=== PATIENT | female | born 2000 | race Caucasian/White ===

== ENCOUNTER 2024-03-23 19:18 | Emergency (ER) | payer MEDICAID, SELFPAY ==
[2024-03-23 19:19] VITALS: BMI 26.6
[2024-03-23 19:38] VITALS: BP 126/77; PULSE 88; RESP 18; TEMP 37.1; O2SAT 99
--- NOTE | 2024-03-23 19:50 | XR_ITS ---
Examination: Complete OB ultrasound greater than 14 weeks Date and time of exam: March 23, 2024 2028 hrs. Indications: Vaginal bleeding and discharge pelvic cramping beginning 2 hours ago Findings: Viable intrauterine single fetus with single amniotic sac presentation transverse head maternal left Cardiac motion 150 BPM Placenta posterior grade 1 Umbilical cord insertion 3 vessel seen Amniotic fluid index 5.4 cm Cervix 4.9 cm Right ovary 3.3 x 2.7 cm arterial flow Left ovary 2.2 x 2.7 cm arterial flow. Composite estimated gestational age based on BPD, head circumference, abdominal circumference, femur length is weeks 0 days Estimated weight 106 g. Survey of intracranial anatomy, spinal anatomy, abdominal anatomy, four-chamber heart performed with no abnormalities identified. Impression: Viable intrauterine gestation transverse presentation Placenta posterior grade 1 no abruption.
--- NOTE | 2024-03-23 19:51 | PD.EDRME ---
Rapid Medical Screening Exam [facility] Arrival date/time: 03/23/24 19:18 23F at approximately 15 weeks and with no significant PMH presents to ED with several days of pelvic pain/cramping and 1 day of vaginal bleeding. Chief Complaint: Abdominal Pain Vital signs: Vital Signs Temperature 98.8 F 03/23/24 19:38 Pulse Rate 88 03/23/24 19:38 Respiratory Rate 18 03/23/24 19:38 Blood Pressure 126/77 03/23/24 19:38 Pulse Oximetry (%) 99 03/23/24 19:38 Oxygen Delivery Method Room Air 03/23/24 19:38
[2024-03-23 20:22] LABS: Collection Type, Urine Clean Catch
[2024-03-23 20:30] LABS: Bacteria,Urine Rare; Bilirubin,Urine Negative (Negative); Blood,Urine Negative (Negative); Clarity,Urine Clear (Clear/Hazy); Color,Urine Colorless (Lt Yel-Yel); Glucose, Urine Negative (Negative); Ketones,Urine Negative (Negative); Leukocyte Esterase,Urine Negative (Negative); Nitrite,Urine Negative (Negative); Protein,Urine Negative (Neg - Trace); RBC,Urine < 1 /hpf (0-3); Specific Gravity,Urine 1.006 (1.001-1.035); Squamous Epithelial Cell,Urine < 1 /hpf (0-5); Urobilinogen,Urine Negative mg/dL (0.0-1.0); WBC,Urine < 1 /hpf (0-5)
[2024-03-23 21:17] LABS: Basophils # (Auto) 0.1 Thou/mm3 (0.0-0.2); Basophils % (Auto) 0 % (0-2.5); Eosinophils # (Auto) 0.3 Thou/mm3 (0.0-0.5); Eosinophils % (Auto) 3 % (0-10); Hematocrit 36.3 % (36.0-46.0); Hemoglobin 12.8 g/dL (12.0-16.0); Immature Granulocytes % (Auto) 0 % (0-0); Immature Granulocytes Auto 0.05 Thou/mm3 (0.00-0.00); Lymphocytes # (Auto) 2.3 Thou/mm3 (1.0-4.8); Lymphocytes % (Auto) 20 % (10-50); Mean Corpuscular HGB Conc 35.3 g/dl (31.0-37.0); Mean Corpuscular Hemoglobin 29.4 pg (25.0-35.0); Mean Corpuscular Volume 83 fL (80-100); Monocytes # (Auto) 0.6 Thou/mm3 (0.0-0.8); Monocytes % (Auto) 5 % (0-12); Neutrophils # (Auto) 8.1 Thou/mm3 (1.8-7.7); Neutrophils % (Auto) 71 % (37-80); Nucleated Red Blood Cell % 0 /100 WBC (0); Platelet Count 169 Thou/mm3 (140-440); RDW Standard Deviation 42.2 fL (36.4-46.3); Red Blood Count 4.36 Miln/mm3 (4.00-5.20); White Blood Count 11.4 Thou/mm3 (3.6-11.0)
--- NOTE | 2024-03-23 21:49 | PD.EDABDPN ---
ED Abdominal Pain RME/HPI General Chief Complaint: Abdominal Pain Stated complaint: VAGINAL DISCHARGE, CRAMPING, 15 WEEKS Arrival date/time: 03/23/24 19:18 RME / HPI RME / HPI narrative: 03/23/24 19:18 23F at approximately 15 weeks and with no significant PMH presents to ED with several days of pelvic pain/cramping and 1 day of vaginal bleeding. ------ Dr. Marion?s Main ED Evaluation: Patient is a 23-year-old female G3, P2 about 15 weeks presents to the emergency department after she states she had a gush of vaginal fluid. She states she thought at first it was urine but then became concerned that this might be amniotic fluid. Patient states she had minimal pelvic cramping after the gush of fluid. No vaginal bleeding. Currently no pelvic cramping. Patient has no nausea, vomiting, diarrhea. No fevers, shakes, chills, sweats. No lower back pain. Related Data Home Medications ?Medication ?Instructions ?Recorded ?Confirmed prenat.vits,marissa,[id number] 1 tab PO DAILY 12/02/20 12/02/20 Allergies Allergy/AdvReac Type Severity Reaction Status Date / Time sulfamethoxazole Allergy Severe ABD PAIN, Verified 07/12/22 16:20 BLOOD IN STOOL trimethoprim Allergy Severe ABD PAIN, Verified 07/12/22 16:20 BLOOD IN STOOL Review of Systems Review of Systems Systems Reviewed: All systems reviewed, normal except as documented Past Medical History Past Medical History CARDIAC: Negative Congestive Heart Failure RESPIRATORY: Negative Chronic Obstructive Pulmonary Disease (COPD) GENITOURINARY: Negative Renal Disease ENDOCRINE: Negative Diabetes Mellitus Type 1 or Diabetes Mellitus Type 2 Social History SMOKING STATUS: Never smoker ED Exam Narrative Physical exam: GENERAL APPEARANCE: alert and oriented x 4, well-developed, well-nourished, no acute distress VITALS: All vitals were reviewed and the pulse ox is % on room air, which is normal according to my interpretation. HEENT: Normocephalic, atraumatic; pupils equal, round, reactive to light; EOMI; mucous membranes pink, moist; oropharynx clear NECK: Supple LUNGS: CTABL; no wheezes, no rales, no rhonchi HEART: Regular rate, regular rhythm; normal S1, S2; no murmurs ABDOMEN: non distended; normal BS; soft, no tenderness, no guarding, no rebound; no masses, no organomegaly, no hernia BACK: no CVA tenderness EXTREMITIES: atraumatic; no edema NEUROLOGIC: awake; alert and oriented x4; cranial nerves II-XII grossly intact; no focal sensory or motor deficits PSYCHIATRIC: appropriate mood and affect SKIN: warm, dry, normal color; no rashes Course Course Course Narrative: Ultrasound is normal, remainder of workup is normal. Pending nitrazine test. Quality Measures none Orders Category Date Time Status Miscellaneous Nursing Order NOW Care 03/23/24 21:46 Completed US OB >= 14 weeks Fetus Stat Exams 03/23/24 19:50 Completed ABO/RH Type Stat Lab 03/23/24 20:55 Completed Beta HCG,Quantitative Stat Lab 03/23/24 20:55 Completed CBC Stat Lab 03/23/24 20:55 Completed CMP [Comprehensive Metabolic Panel] Stat Lab 03/23/24 20:55 Completed Rupture of Membranes Stat Lab 03/23/24 22:06 Completed UA [Urinalysis] Stat Lab 03/23/24 20:05 Completed Urine Culture Stat Lab 03/23/24 20:05 Received Vital Signs Vital signs: Vital Signs Temperature 98.8 F 03/23/24 19:38 Pulse Rate 88 03/23/24 19:38 Respiratory Rate 18 03/23/24 19:38 Blood Pressure 126/77 03/23/24 19:38 Pulse Oximetry (%) 99 03/23/24 19:38 Oxygen Delivery Method Room Air 03/23/24 19:38 Abdominal Pain MDM Patient data External records reviewed:: [facility] previous records (Per chart review, patient was seen here on 03/27/22 for intrauterine bleeding.) Clinical information provided by:: patient Social determinants that could affect healthcare access:: none Patient has the following chronic illnesses:: none How is presenting disease/condition affected by chronic disease/condition?: no chronic disease Evaluation data The following diagnostics were reviewed and interpreted by me:: lab results and radiology exam(s) Lab and/or radiology exams considered but not ordered:: none Interpretation Summary: WBC count is slightly elevated at 11.4, [place], [place] [address], according to my interpretation. ---- [facility] Report Signed Patient: JOON APONTE [facility] Record#: [id number] Birthdate: 2000 Age/Sex: 23 / F Location: [facility] Attending Dr: Ordering Physician: Kalin Johnson PA-C Date of Service: 03/23/24 Procedure(s): US OB >= 14 weeks Fetus Accession Number(s): [id number] cc: Javed Villar MD; Shady Campbell MD; Kalin Johnson PA-C~ Examination: Complete OB ultrasound greater than 14 weeks Date and time of exam: March 23, 2024 202 hrs. Indications: Vaginal bleeding and discharge pelvic cramping beginning 2 hours ago Findings: Viable intrauterine single fetus with single amniotic sac presentation transverse head maternal left Cardiac motion 150 BPM Placenta posterior grade 1 Umbilical cord insertion 3 vessel seen Amniotic fluid index 5.4 cm Cervix 4.9 cm Right ovary 3.3 x 2.7 cm arterial flow Left ovary 2.2 x 2.7 cm arterial flow. Composite estimated gestational age based on BPD, head circumference, abdominal circumference, femur length is weeks 0 days Estimated weight 106 g. Survey of intracranial anatomy, spinal anatomy, abdominal anatomy, four-chamber heart performed with no abnormalities identified. Impression: Viable intrauterine gestation transverse presentation Placenta posterior grade 1 no abruption. Dictated By: Shady Campbell MD Signed By: <Electronically signed by Shady Campbell MD in OV> 03/23/240 Medications / Prescriptions Medications or Prescriptions considered but not ordered:: none Medication administrations:: none Consultations Consultation(s) initiated? (list below): No Diagnosis Differential diagnosis abdominal pain: other (, threatened , missed ) Most likely diagnosis given after review of the tests above:: see below Admission Indicated Admission indicated?: not indicated Admission Request Was there a request for admission?: No Disposition Plan Disposition Plan: Discharge Discharge Attestation Discharge Attestation: The patient and all family members were given an opportunity to ask questions and understood the discharge instructions. Discharge instructions specifically effects, indications for sooner follow up or return to the emergency department, and the expected course of current diagnosis. Patient condition: Stable Discharge Plan Plan Patient Disposition: HOME (Self Care) Disposition Comment: Stable for discharge Patient condition on transfer: Stable Prescriptions/Referrals Prescriptions/Med Rec: No Action Vitamin Tablet 1 tab PO DAILY Referrals: Javed Villar MD [Primary Care Provider] - In 1 week Problem List Clinical Impression: Intrauterine Patient/Caregiver Discharge Instructions Discharge Activity: activity as tolerated Education Materials: Preg 2nd Trimester Additional Instructions: Return to the emergency department for any worsening or any further medical problems Otherwise you should follow-up with your primary commercial finance analyst within the next several days Print Language: Monegasque Stand Alone Forms: Elizabeth Award Info., Patient Portal Info Letter
[2024-03-23 21:50] LABS: Alanine Aminotransferase < 7 U/L (10-49); Albumin, Serum 4.6 gm/dL (3.5-5.0); Albumin/Globulin Ratio 1.5 (1.2-2.2); Alkaline Phosphatase 60 U/L (46-116); Anion Gap 6 (7-16); Aspartate Amino Transferase 13 U/L (0-34); BUN/Creatinine Ratio 12 Ratio (12-20); Bilirubin,Total 0.6 mg/dL (0.3-1.2); Blood Urea Nitrogen 7 mg/dL (9-23); Calcium 9.9 mg/dL (8.3-10.6); Calcium (Corrected) 9.9 mg/dL (8.5-10.1); Chloride 103 mMol/L (98-107); Creatinine (Component) 0.6 mg/dL (0.6-1.3); Estimated Creatinine Clearance 153.4 mL/min (>60); Globulin 3.1 gm/dL (2.3-3.5); Glucose 77 mg/dL (74-106); Osmolality,Calculated 265 (275-295); Potassium 3.8 mMol/L (3.4-5.1); Sodium 134 mMol/L (136-145); Total Protein 7.7 gm/dL (5.7-8.2); eGFR > 60 See Note
[2024-03-23 22:11] LABS: Beta HCG,Quantitative 39344 mIU/mL (<5.0)
[2024-03-23 22:15] LABS: ROM Kit Lot # 57805053; ROM Swab Mixed By: BDR; Rupture of Fetal Membranes Negative (Negative); Swb Mxed in Solvent 1 min? Yes
== END 2024-03-23 22:41 | disposition home or self-care (01) ==
PROVIDERS: Physician Assistant; Emergency Provider Emergency Medicine; PCP Family Medicine
DX: O20.9 Hemorrhage in early pregnancy, unspecified (principal); O99.111 Other diseases of the blood and blood-forming organs and certain disorders involving the immune mechanism complicating pregnancy, first trimester; D72.829 Elevated white blood cell count, unspecified; Z3A.15 15 weeks gestation of pregnancy
CPT/HCPCS: 36415; 76805; 80053; 81001; 84112; 84702; 85025; 86900; 86901; 87086; 99284

== ENCOUNTER 2024-05-18 01:32 | Observation (INO) | payer MEDICAID, SELFPAY ==
[2024-05-18 01:46] VITALS: BP 123/76; PULSE 94
[2024-05-18 01:49] VITALS: BP 123/76; PULSE 95; RESP 100; RESP 16; TEMP 36.6
[2024-05-18 01:51] VITALS: BP 115/73; PULSE 85
[2024-05-18 01:59] VITALS: BMI 28.0
[2024-05-18] MEDS: ACETAMINOPHEN 325 MG TABLET 650 MG PO (02:03)
[2024-05-18 03:06] VITALS: BP 106/56; PULSE 76
== END 2024-05-18 03:20 | disposition home or self-care (01) ==
PROVIDERS: Admitting Provider Student in an Organized Health Care Education/Training Program; Visit Provider Student in an Organized Health Care Education/Training Program
DX: O26.892 Other specified pregnancy related conditions, second trimester (principal); R51.9 Headache, unspecified; Z3A.23 23 weeks gestation of pregnancy
CPT/HCPCS: 59899; A9270

== ENCOUNTER 2024-05-19 21:49 | Observation (INO) | payer MEDICAID, SELFPAY ==
[2024-05-19] VITALS (32 sets, daily range): BP systolic 100–138; BP diastolic 66–78; PULSE 92–135; RESP 16–100; TEMP 36.5–39.1; O2SAT 88–100; BMI 28.0; BMI 28.2
--- NOTE | 2024-05-19 18:30 | PD.EDRME ---
Rapid Medical Screening Exam [facility] Arrival date/time: 05/19/24 17:46 23-year-old female with no known medical history presents to the emergency room with a chief complaint of right-sided pelvic pain, fever, congestion, shortness of breath x 3 days. Patient is currently 23 weeks she is a . Patient denies any vaginal bleeding. I have greeted and performed a focused initial assessment of this patient. A comprehensive ED assessment and evaluation of the patient, analysis of all test results, and completion of the medical decision making process will be conducted by additional ED providers. Chief Complaint: Flu Like Symptoms Time Seen by Provider: 05/19/24 18:34 Vital signs: Vital Signs Temperature 102.3 F H 05/19/24 18:22 Pulse Rate 135 H 05/19/24 18:22 Respiratory Rate 18 05/19/24 18:22 Blood Pressure 138/78 H 05/19/24 18:22 Pulse Oximetry (%) 100 05/19/24 18:22 Oxygen Delivery Method Room Air 05/19/24 18:22 Vital signs reviewed by provider: Yes
[2024-05-19] MEDS: ACETAMINOPHEN 500 MG TABLET 1000 MG PO (18:36)
--- NOTE | 2024-05-19 18:37 | PD.EDURI ---
Upper Respiratory Inf. RME/HPI General Chief Complaint: Flu Like Symptoms Stated Complaint: headaches, coughing,fever, chest hurts, ab pain Time Seen by Provider: 05/19/24 18:34 Arrival date/time: 05/19/24 17:46 Limitations: no limitations RME / HPI RME / HPI Narrative: 05/19/24 17:46 23-year-old female with no known medical history presents to the emergency room with a chief complaint of right-sided pelvic pain, fever, congestion, shortness of breath x 3 days. Patient is currently 23 weeks she is a . Patient denies any vaginal bleeding. I have greeted and performed a focused initial assessment of this patient. A comprehensive ED assessment and evaluation of the patient, analysis of all test results, and completion of the medical decision making process will be conducted by additional ED providers. DR. MARTIN MAIN ED EVALUATION: 23-year-old female with 23 weeks gestation presenting to the emergency department with complaints of facial congestion, subjective fever, cough for 3 days with pelvic pain that started this morning. The patient states that she is not feeling abdominal cramping. Positive nausea, subjective fever. No neck pain. No diarrhea. PMHx: Denies any PMHx, surgeries, daily medications, or known allergies. Social Hx: No tobacco, alcohol, or substance use. Related Data Home Medications ?Medication ?Instructions ?Recorded ?Confirmed prenat.vits,marissa,[id number] 1 tab PO DAILY 12/02/20 05/18/24 Allergies Allergy/AdvReac Type Severity Reaction Status Date / Time sulfamethoxazole Allergy Severe ABD PAIN, Verified 05/18/24 01:53 BLOOD IN STOOL trimethoprim Allergy Severe ABD PAIN, Verified 05/18/24 01:53 BLOOD IN STOOL Review of Systems Review of Systems Systems Reviewed: All systems reviewed, normal except as documented Narrative Review of Systems: GEN: + subjective fever, no chills, no weight loss EYES: No discharge, no visual changes, no pain HEENT: No ear pain, + facial congestion, no sore throat PULM: No shortness of breath, + cough CV: No chest pain, no dyspnea on exertion, no palpitations GI: + nausea, no vomiting, no diarrhea, + pelvic pain, no constipation : No frequency, no urgency and no dysuria MUSC/SKEL: No joint pain, no back pain SKIN: No rash PSYCH: No hallucinations, no depression HEME/LYMPH: No easy bleeding or bruising tendencies NEURO: No weakness, no headache Past Medical History Past Medical History CARDIAC: Negative Congestive Heart Failure RESPIRATORY: Negative Chronic Obstructive Pulmonary Disease (COPD) GENITOURINARY: Negative Renal Disease ENDOCRINE: Negative Diabetes Mellitus Type 1 or Diabetes Mellitus Type 2 Social History SMOKING STATUS: Never smoker ED Exam Narrative Physical exam: No diaphoresis, neck is supple, appears fatigued but not septic. Febrile, 102.3 F. General Limitations: Present no limitations General appearance: Present alert and in no apparent distress Head Head exam: Present atraumatic, normocephalic and normal inspection Eye Eye exam: Present normal appearance, PERRL and EOMI ENT ENT exam: Present normal exam, normal oropharynx and mucous membranes moist Neck Neck exam: Present normal inspection, full ROM and trachea midline Chest Chest inspection: Present normal inspection and symmetric chest wall rise Respiratory Respiratory exam: Present normal lung sounds bilaterally Cardiovascular Cardiovascular exam: Present regular rate, tachycardia and normal heart sounds Abdominal Exam Abdominal exam: Present soft and normal bowel sounds Extremities Exam Extremities exam: Present normal inspection and full ROM Back Exam Back exam: Present normal inspection and full ROM Neurological Exam Neurological exam: Present alert, oriented X3 and CN II-XII intact Psychiatric Psychiatric exam: Present normal affect and normal mood Skin Skin exam: Present warm, dry, intact and normal color Course Quality Measures none Orders Category Date Time Status Bedside COVID-19 Antigen Test NOW Care 05/19/24 18:28 Active Bedside Influenza A&B Antigen Test NOW Care 05/19/24 18:28 Completed Insert IV NOW Care 05/19/24 18:28 Active US OB >= 14 weeks Fetus Stat Exams 05/19/24 18:44 Completed ABO/RH Type Stat Lab 05/19/24 19:44 Completed Beta HCG,Quantitative Stat Lab 05/19/24 19:44 Completed Blood Culture (Lab) Stat Lab 05/19/24 19:36 Received CBC Stat Lab 05/19/24 19:44 Completed CMP [Comprehensive Metabolic Panel] Stat Lab 05/19/24 19:44 Completed Lactate (Lactic Acid) Stat Lab 05/19/24 19:44 Completed Procalcitonin Stat Lab 05/19/24 19:44 Completed UA [Urinalysis] Stat Lab 05/19/24 18:28 Completed Urine Culture Stat Lab 05/19/24 19:44 Received Acetaminophen Tab [Tylenol ES Tab] Med 05/19/24 18:28 Discontinued 1,000 mg PO X1 ONE Sodium Chloride 0.9% 1000 ml [Ns] 1,000 ml Med 05/19/24 18:30 Discontinued IV 999 mls/hr Sodium Chloride 0.9% 1000 ml [Ns] 1,000 ml Med 05/19/24 18:37 Discontinued IV 999 mls/hr Vital Signs Vital signs: Vital Signs Temperature 102.3 F H 05/19/24 18:22 Pulse Rate 135 H 05/19/24 18:22 Respiratory Rate 18 05/19/24 18:22 Blood Pressure 138/78 H 05/19/24 18:22 Pulse Oximetry (%) 100 05/19/24 18:22 Oxygen Delivery Method Room Air 05/19/24 18:22 Upper Respiratory Infection MDM Narrative MDM Narrative:: I, Garima Carlos am scribing for and in the presence of Dr. Martin. Differential includes UTI, sepsis, influenza, labor, dehydration, electrolyte abnormality. The patient now has had symptoms 1 to 3 days. Tamiflu at this time will not make much of a difference. The patient is still having pressure-like symptoms. Pelvic shows intrauterine with good cardiac movement. Patient will be discharged to the PLANT GENERAL MANAGER floor. Patient data External records reviewed:: [facility] previous records (Reviewed last ED visit dated 03/23/24, discharged with the following: Intrauterine .) Clinical information provided by:: patient Social determinants that could affect healthcare access:: none Patient has the following chronic illnesses:: Denies any PMHx, surgeries, daily medications, or known allergies. How is presenting disease/condition affected by chronic disease/condition?: no chronic disease Evaluation data The following diagnostics were reviewed and interpreted by me:: lab results and radiology exam(s) Lab and/or radiology exams considered but not ordered:: none Interpretation Summary: Procedure(s): US OB >= 14 weeks Fetus Accession Number(s): [id number] cc: Arvin Jefferson; Shady Campbell MD~ Examination: Complete OB ultrasound greater than 14 weeks Date and time of exam: May 19, 2024 1845 hrs. Indications: Pelvic pain and fever with coughing beginning 2 days ago, sepsis protocol Findings: Viable intrauterine single fetus with single amniotic sac presentation breech Cardiac motion 178 BPM Placenta posterior grade 2 Umbilical cord insertion 3 vessel seen Amniotic fluid volume adequate spine maternal right Cervix 3.6 cm Right ovary 3.7 x 2.0 x 2.9 cm arterial flow Left ovary 2.5 x 1.7 x 2.2 cm arterial flow. Composite estimated gestational age based on BPD, head circumference, abdominal circumference, femur length is 22 weeks 2 days Estimated weight 497 g. Survey of intracranial anatomy, spinal anatomy, abdominal anatomy, four-chamber heart performed with no abnormalities identified. Impression: Viable intrauterine gestation breech presentation Cardiac motion 178 BPM Placenta posterior grade 2 Estimated gestational age 22 weeks 2 days. Dictated By: Shady Campbell MD Medications / Prescriptions Medications or Prescriptions considered but not ordered:: none Medication administrations:: Medication Administration History Discontinued Medications Acetaminophen (Acetaminophen 500 Mg Tablet) 1,000 mg PO X1 ONE Stop: 05/19/24 18:29 Last Admin: 05/19/24 18:36 Dose: 1,000 mg Documented By: MAGALY Sodium Chloride (Ns) 1,000 mls @ 999 mls/hr IV .Q1H1M ONE Stop: 05/19/24 19:30 Last Infusion: 05/19/24 21:14 Dose: Infused Documented By: Admin: 05/19/24 19:51 Dose: 999 mls/hr Documented By: MAGALY Sodium Chloride (Ns) 1,000 mls @ 999 mls/hr IV .Q1H1M ONE Stop: 05/19/24 19:37 Last Infusion: 05/19/24 21:14 Dose: Infused Documented By: Admin: 05/19/24 19:51 Dose: 999 mls/hr Documented By: MAGALY see above Consultations Consultation(s) initiated? (list below): No Diagnosis Upper Respiratory Differential Diagnosis: other (UTI, pyelonephritis, influenza, sepsis) Most likely diagnosis given after review of the tests above:: Influenza, Flank pain Admission Indicated Admission indicated?: not indicated Admission Request Was there a request for admission?: No Disposition Plan Disposition Plan: Discharge (And to be sent directly to the PLANT GENERAL MANAGER floor.) Discharge Attestation Discharge Attestation: The patient and all family members were given an opportunity to ask questions and understood the discharge instructions. Discharge instructions specifically effects, indications for sooner follow up or return to the emergency department, and the expected course of current diagnosis. Patient condition: Stable Discharge Plan Plan Patient Disposition: HOME (Self Care) Patient condition on transfer: Stable Prescriptions/Referrals Prescriptions/Med Rec: No Action Vitamin Tablet 1 tab PO DAILY Referrals: Javed Villar MD [Primary Care Provider] - In 1 week Problem List Clinical Impression: Flank pain, Influenza A Patient/Caregiver Discharge Instructions Additional Instructions: Today you have the flu however since you are complaining of flank and pressure-like pain in your abdomen we need to send you upstairs to the PLANT GENERAL MANAGER floor so that you can be cleared. Go directly to the PLANNER INTERN floor from the emergency department. Print Language: [place] Islander Stand Alone Forms: Elizabeth Award Info., Patient Portal Info Letter
--- NOTE | 2024-05-19 18:44 | XR_ITS ---
Examination: Complete OB ultrasound greater than 14 weeks Date and time of exam: May 19, 2024 1845 hrs. Indications: Pelvic pain and fever with coughing beginning 2 days ago, sepsis protocol Findings: Viable intrauterine single fetus with single amniotic sac presentation breech Cardiac motion 178 BPM Placenta posterior grade 2 Umbilical cord insertion 3 vessel seen Amniotic fluid volume adequate spine maternal right Cervix 3.6 cm Right ovary 3.7 x 2.0 x 2.9 cm arterial flow Left ovary 2.5 x 1.7 x 2.2 cm arterial flow. Composite estimated gestational age based on BPD, head circumference, abdominal circumference, femur length is 22 weeks 2 days Estimated weight 497 g. Survey of intracranial anatomy, spinal anatomy, abdominal anatomy, four-chamber heart performed with no abnormalities identified. Impression: Viable intrauterine gestation breech presentation Cardiac motion 178 BPM Placenta posterior grade 2 Estimated gestational age 22 weeks 2 days.
[2024-05-19] MEDS: SODIUM CHLORIDE 0.9% 1000 ML 1,000 ML 999 ML IV ×2 (19:51)
[2024-05-19 19:59] LABS: Lactate (Lactic Acid) 0.8 mMol/L (0.4-2.0)
[2024-05-19 20:04] LABS: Basophils % (Auto) 0 % (0-2.5); Eosinophils % (Auto) 0 % (0-10); Hematocrit 33.4 % (36.0-46.0); Hemoglobin 11.9 g/dL (12.0-16.0); Immature Granulocytes % (Auto) 1 % (0-0); Immature Granulocytes Auto 0.05 Thou/mm3 (0.00-0.00); Lymphocytes # (Auto) 0.6 Thou/mm3 (1.0-4.8); Lymphocytes % (Auto) 8 % (10-50); Mean Corpuscular HGB Conc 35.6 g/dl (31.0-37.0); Mean Corpuscular Hemoglobin 30.7 pg (25.0-35.0); Mean Corpuscular Volume 86 fL (80-100); Monocytes # (Auto) 0.7 Thou/mm3 (0.0-0.8); Monocytes % (Auto) 9 % (0-12); Neutrophils # (Auto) 6.6 Thou/mm3 (1.8-7.7); Neutrophils % (Auto) 82 % (37-80); Nucleated Red Blood Cell % 0 /100 WBC (0); Platelet Count 157 Thou/mm3 (140-440); RDW Standard Deviation 42.1 fL (36.4-46.3); Red Blood Count 3.88 Miln/mm3 (4.00-5.20)
[2024-05-19 20:13] LABS: Bilirubin,Urine Negative (Negative); Blood,Urine Negative (Negative); Clarity,Urine Clear (Clear/Hazy); Collection Type, Urine Clean Catch; Color,Urine Yellow (Lt Yel-Yel); Glucose, Urine Negative (Negative); Ketones,Urine Negative (Negative); Leukocyte Esterase,Urine Negative (Negative); Nitrite,Urine Negative (Negative); PH,Urine 6.5 (5.0-7.0); Protein,Urine Trace (Neg - Trace); RBC,Urine 1 /hpf (0-3); Specific Gravity,Urine 1.024 (1.001-1.035); Squamous Epithelial Cell,Urine 1 /hpf (0-5); Urobilinogen,Urine Negative mg/dL (0.0-1.0); WBC,Urine 1 /hpf (0-5)
[2024-05-19 20:35] LABS: Alanine Aminotransferase 8 U/L (10-49); Albumin, Serum 4.2 gm/dL (3.5-5.0); Albumin/Globulin Ratio 1.4 (1.2-2.2); Alkaline Phosphatase 63 U/L (46-116); Anion Gap 7 (7-16); Aspartate Amino Transferase 17 U/L (0-34); BUN/Creatinine Ratio 12 Ratio (12-20); Bilirubin,Total 0.5 mg/dL (0.3-1.2); Blood Urea Nitrogen 7 mg/dL (9-23); Calcium 9.7 mg/dL (8.3-10.6); Calcium (Corrected) 9.7 mg/dL (8.5-10.1); Chloride 104 mMol/L (98-107); Creatinine (Component) 0.6 mg/dL (0.6-1.3); Estimated Creatinine Clearance 157.1 mL/min (>60); Globulin 2.9 gm/dL (2.3-3.5); Glucose 82 mg/dL (74-106); Osmolality,Calculated 263 (275-295); Potassium 3.6 mMol/L (3.4-5.1); Procalcitonin 0.07 ng/ml (0.0-0.49); Sodium 133 mMol/L (136-145); Total Protein 7.1 gm/dL (5.7-8.2); eGFR > 60 See Note
[2024-05-19 21:08] LABS: Beta HCG,Quantitative 32143 mIU/mL (<5.0)
[2024-05-19 23:24] LABS: ROM Kit Lot # 57809118; ROM Swab Mixed By: ANGUM; Rupture of Fetal Membranes Negative (Negative); Swb Mxed in Solvent 1 min? Yes
--- NOTE | 2024-05-20 00:38 | PD.LDPN ---
Documentation for date of: 05/20/24 OB Labor Progress Note Assessment and Plan Comments: Patient is 23wk , seen in ER for URI symptoms including fever, noted to have influenza A. Ultrasound performed demonstrated well being and adequate fluid, cervical length 3.6cm. UA was clear. WBC count 8. She received IVF, was not prescribed tamiflu by ER provider since sx have been going on for >3 days. She came to OB floor to be cleared obstetrically since she initially presented with right pelvic pain as well, but that resolved while in the ER. She had no contractions on toco. No evidence of labor. Patient to be discharged home to rest and recover. I have prescribed tamiflu 75mg PO BID x5 days since she is and still may benefit from taking the prescription. In addition, tylenol 1000mg PO Q6hr PRN fever was prescribed as well to take for any temp > 100.4F. She should continue to follow up with her OB as scheduled and return for any worsening of sx. Anabelle Goss MD
== END 2024-05-19 23:45 | disposition home or self-care (01) ==
LOC: S4SX 21:50
PROVIDERS: Nurse Practitioner Family; Admitting Provider Obstetrics & Gynecology; PCP Family Medicine; Visit Provider Obstetrics & Gynecology
DX: O98.512 Other viral diseases complicating pregnancy, second trimester (principal); J10.1 Influenza due to other identified influenza virus with other respiratory manifestations; Z3A.23 23 weeks gestation of pregnancy
CPT/HCPCS: 36415; 59025; 59899; 76805; 80053; 81001; 83605; 84112; 84145; 84702; 85025; 86900; 86901; 87040; 87086; 87400; 87811; J7030; A9270

== ENCOUNTER 2024-06-20 17:25 | Observation (INO) | payer MEDICAID, SELFPAY ==
[2024-06-20 17:29] VITALS: BP 118/70; PULSE 96; RESP 16; RESP 99; TEMP 36.8
[2024-06-20 17:32] VITALS: BP 84/62; PULSE 83
[2024-06-20 17:33] VITALS: BP 118/70; PULSE 90
[2024-06-20 17:54] VITALS: BP 119/76; PULSE 88
--- NOTE | 2024-06-20 18:00 | XR_ITS ---
Examination: Complete OB ultrasound greater than 14 weeks Date and time of exam: June 20, 2024 1812 hrs. Indications: Labor evaluation, pelvic pain one month, unknown cervical length Findings: Viable intrauterine single fetus with single amniotic sac presentation variable Cardiac motion 130 BPM Placenta posterior grade 2 Umbilical cord insertion 3 vessel seen Amniotic fluid index 12.5 cm Cervix 3.7 cm Right ovary 2.8 cm arterial flow Left ovary 3.4 cm arterial flow No placental abruption. Composite estimated gestational age based on BPD, head circumference, abdominal circumference, femur length is 27 weeks 2 days Estimated weight 1025.6 g. Survey of intracranial anatomy, spinal anatomy, abdominal anatomy, four-chamber heart performed with no abnormalities identified. Impression: Viable intrauterine gestation variable presentation. Estimated weight 1025.6 g
[2024-06-20 18:02] VITALS: BMI 28.5
== END 2024-06-20 18:57 | disposition home or self-care (01) ==
PROVIDERS: Admitting Provider Obstetrics & Gynecology; PCP Family Medicine; Visit Provider Obstetrics & Gynecology
DX: O26.892 Other specified pregnancy related conditions, second trimester (principal); Z3A.27 27 weeks gestation of pregnancy; R10.2 Pelvic and perineal pain
CPT/HCPCS: 59025; 59899; 76805

== ENCOUNTER 2024-07-24 23:26 | Observation (INO) | payer MEDICAID, SELFPAY ==
[2024-07-24 23:35] VITALS: BP 132/68; PULSE 102; RESP 18; RESP 99; TEMP 36.8
[2024-07-24 23:36] VITALS: BP 132/68; PULSE 90
== END 2024-07-25 00:37 | disposition home or self-care (01) ==
PROVIDERS: Admitting Provider Obstetrics & Gynecology; Visit Provider Obstetrics & Gynecology
DX: O36.8130 Decreased fetal movements, third trimester, not applicable or unspecified (principal); Z3A.32 32 weeks gestation of pregnancy
CPT/HCPCS: 59025; 59899

== ENCOUNTER 2024-09-28 22:21 | Emergency (ER) | payer MEDICAID, SELFPAY ==
[2024-09-28 22:24] VITALS: BMI 26.6
[2024-09-28 23:26] VITALS: BP 121/82; PULSE 88; RESP 18; TEMP 36.9; O2SAT 99
--- NOTE | 2024-09-28 23:28 | PD.EDDENTL ---
ED Dental RME/HPI General Chief complaint: Dental/Oral/Throat Stated complaint: TOOTH ACHE Time Seen by Provider: 09/28/24 23:20 Arrival date/time: 09/28/24 22:21 24F with no significant PMH presents to ED with several days of R upper dental pain. Patient finished a course of amoxicillin about 3 weeks ago for similar complaint. Patient has upcoming dental procedure on that tooth. Limitations: no limitations Related Data Home Medications ?Medication ?Instructions ?Recorded ?Confirmed prenat.vits,marissa,[id number] 1 tab PO DAILY 12/02/20 05/19/24 Previous Rx's ?Medication ?Instructions ?Recorded acetaminophen 500 mg tablet 1,000 mg (2 x 500 mg) PO Q6H PRN 05/20/24 fever #30 tabs amoxicillin 875 mg-potassium 1 tab PO BID 7 days #14 tabs 09/28/24 clavulanate 125 mg tablet Allergies Allergy/AdvReac Type Severity Reaction Status Date / Time sulfamethoxazole Allergy Severe ABD PAIN, Verified 05/19/24 22:09 BLOOD IN STOOL trimethoprim Allergy Severe ABD PAIN, Verified 05/19/24 22:09 BLOOD IN STOOL Review of Systems Review of Systems Systems Reviewed: All systems reviewed, normal except as documented Constitutional Constitutional: Reports system reviewed and no additional complaints, except as documented, Denies fever(s) and Denies headache(s) ENT Ears, Nose, Mouth, and Throat: Reports as per HPI, Reports dental pain, Denies disequilibrium and Denies headache(s) Cardiovascular Cardiovascular: Reports system reviewed and no additional complaints, except as documented, Denies chest pain and Denies dyspnea Respiratory Respiratory: Reports system reviewed and no additional complaints, except as documented, Denies cough and Denies dyspnea Gastrointestinal Gastrointestinal: Reports system reviewed and no additional complaints, except as documented, Denies abdominal pain, Denies nausea and Denies vomiting Neurologic Neurologic: Reports system reviewed and no additional complaints, except as documented, Denies confusion, Denies disequilibrium and Denies headache(s) Psychiatric Psychiatric: Denies confusion Past Medical History Past Medical History CARDIAC: Negative Congestive Heart Failure RESPIRATORY: Negative Chronic Obstructive Pulmonary Disease (COPD) GENITOURINARY: Negative Renal Disease ENDOCRINE: Negative Diabetes Mellitus Type 1 or Diabetes Mellitus Type 2 Social History SMOKING STATUS: Never smoker ED Exam General Limitations: Present no limitations General appearance: Present alert and in no apparent distress Head Head exam: Present atraumatic Eye Eye exam: Present normal appearance, PERRL and EOMI ENT ENT exam: Present mucous membranes moist Expanded ENT Exam Teeth exam: Present dental tenderness # (1/2) and gingival swelling Neck Neck exam: Present normal inspection, full ROM and trachea midline Chest Chest inspection: Present normal inspection and symmetric chest wall rise Respiratory Respiratory exam: Present normal lung sounds bilaterally Cardiovascular Cardiovascular exam: Present regular rate, normal rhythm and normal heart sounds Abdominal Exam Abdominal exam: Present soft and normal bowel sounds Extremities Exam Extremities exam: Present normal inspection and full ROM Back Exam Back exam: Present normal inspection and full ROM Neurological Exam Neurological exam: Present alert, oriented X3 and CN II-XII intact Psychiatric Psychiatric exam: Present normal affect and normal mood Skin Skin exam: Present warm, dry, intact and normal color Course Quality Measures none Orders Category Date Time Status Amoxicillin/Pot Clav 875 [Augmentin 875] Med 09/28/24 23:21 Once 1 tab PO X1 ONE Naproxen [Naprosyn] Med 09/28/24 23:21 Once 500 mg PO X1 ONE Vital Signs Vital signs: Vital Signs Temperature 98.5 F 09/28/24 23:26 Pulse Rate 88 09/28/24 23:26 Respiratory Rate 18 09/28/24 23:26 Blood Pressure 121/82 09/28/24 23:26 Pulse Oximetry (%) 99 09/28/24 23:26 Oxygen Delivery Method Room Air 09/28/24 23:26 O2 at 99% on RA and WNLs Dental / Oral MDM Narrative MDM Narrative:: 24F with no significant PMH presents to ED with several days of R upper dental pain. Patient finished a course of amoxicillin about 3 weeks ago for similar complaint. Patient has upcoming dental procedure on that tooth. Physical exam reveals some dental tenderness and gingival swelling. Patient is afebrile, calm, and alert. Meds and college counselor given. Patient data External records reviewed:: [facility] previous records Clinical information provided by:: patient Social determinants that could affect healthcare access:: none Patient has the following chronic illnesses:: none How is presenting disease/condition affected by chronic disease/condition?: no chronic disease Evaluation data The following diagnostics were reviewed and interpreted by me:: other (specify) (none) Lab and/or radiology exams considered but not ordered:: not ordered Interpretation Summary: n/a Medications / Prescriptions Medications or Prescriptions considered but not ordered:: ordered Medication administrations:: Medication Administration History Amoxicillin/Clavulanate Potassium (Amoxicillin/Pot Clav 875 Tablet) 1 tab PO X1 ONE Stop: 09/28/24 23:22 Naproxen (Naproxen 250 Mg Tablet) 500 mg PO X1 ONE Stop: 09/28/24 23:22 above Consultations Consultation(s) initiated? (list below): No Diagnosis Dental Differential Diagnosis: gingival abscess, dental caries, toothache, dental abscess, fracture of tooth and aphthous ulcer Most likely diagnosis given after review of the tests above:: dental infection Admission Indicated Admission indicated?: not indicated Admission Request Was there a request for admission?: No Disposition Plan Disposition Plan: Discharge Discharge Attestation Discharge Attestation: The patient and all family members were given an opportunity to ask questions and understood the discharge instructions. Discharge instructions specifically effects, indications for sooner follow up or return to the emergency department, and the expected course of current diagnosis. Patient condition: Stable Discharge Plan Plan Patient Disposition: HOME (Self Care) Discharge Disposition comment: Stable Prescriptions/Referrals Prescriptions/Med Rec: New amoxicillin-pot clavulanate 875-125 mg tablet 1 tab PO BID 7 Days Qty: 14 0RF No Action Vitamin Tablet 1 tab PO DAILY acetaminophen 500 mg tablet 1,000 mg PO Q6H MDD 4000mg PRN (Reason: fever) Qty: 30 0RF Problem List Clinical Impression: Dental infection Patient/Caregiver Discharge Instructions Education Materials: ED Abscess Antibiotic ... Additional Instructions: Please follow-up with PCP within 24-48 hours and return immediately if symptoms worsen. Ibuprofen is okay when . Can combine with Tylenol. Print Language: Wallisian Stand Alone Forms: Patient Portal Info Letter KORI/COOK RELIEF Supervising Physician KORI/MADDY Supervising Physician: Dr. Marion
[2024-09-28] MEDS: NAPROXEN 250 MG TABLET 500 MG PO (23:52)
[2024-09-28] MEDS: AMOXICILLIN/POT CLAV 875 TABLET 1 TAB PO (23:53)
== END 2024-09-29 01:34 | disposition home or self-care (01) ==
LOC: SERX 23:52
PROVIDERS: Emergency Provider Emergency Medicine; PCP Family Medicine
DX: K04.7 Periapical abscess without sinus (principal)
CPT/HCPCS: 99282; A9270

== ENCOUNTER 2024-10-30 01:24 | Emergency (ER) | payer MEDICAID, SELFPAY ==
[2024-10-30 01:25] VITALS: BMI 27.1
[2024-10-30 01:42] VITALS: BP 122/84; PULSE 102; RESP 18; TEMP 36.8; O2SAT 98
--- NOTE | 2024-10-30 01:49 | XR_ITS ---
Examination: Left ankle 2 views TECHNIQUE: AP lateral left ankle 2 views Date and time: October 30, 2024, 0205 hours. INDICATIONS: Patient fell today with injury to the ankle, ankle pain. FINDINGS: Lateral malleolar soft tissue swelling. No acute fracture. No ankle dislocation. IMPRESSION: No acute fracture.
--- NOTE | 2024-10-30 02:50 | EDNOTE_ITS ---
Lower Extremity Injury RME/HPI General Chief Complaint: Ankle/Foot Injury Stated Complaint: LEFT ANKLE INJURY Time Seen by Provider: 10/30/24 01:26 Source: patient Arrival date/time: 10/30/24 01:24 This is a case of 24-year-old female who came in in the emergency room due to left ankle injury history of present illness started 2 hours prior to arrival in the emergency room when the patient accidentally twisted her left ankle sustaining pain and swelling due to worsening of the symptoms this patient decided to sought consult here in the emergency room Limitations: no limitations Related Data Home Medications ?Medication ?Instructions ?Recorded ?Confirmed prenat.vits,marissa,[id number] 1 tab PO DAILY 12/02/20 05/19/24 Previous Rx's ?Medication ?Instructions ?Recorded acetaminophen 500 mg tablet 1,000 mg (2 x 500 mg) PO Q 6H PRN 05/20/24 fever #30 tabs acetaminophen 325 mg tablet 650 mg (2 x 325 mg) PO Q6H PRN 10/30/24 (Tylenol) pain #30 tabs Allergies Allergy/AdvReac Type Severity Reaction Status Date / Time sulfamethoxazole Allergy Severe ABD PAIN, Verified 05/19/24 22:09 BLOOD IN STOOL trimethoprim Allergy Severe ABD PAIN, Verified 05/19/24 22:09 BLOOD IN STOOL Review of Systems Review of Systems Systems Reviewed: All systems reviewed, normal except as documented Constitutional Constitutional: Reports system reviewed and no additional complaints, except as documented and Reports as per HPI Cardiovascular Cardiovascular: Reports system reviewed and no additional complaints, except as documented and Reports as per HPI Respiratory Respiratory: Reports system reviewed and no additional complaints, except as documented and Reports as per HPI Gastrointestinal Gastrointestinal: Reports system reviewed and no additional complaints, except as documented and Reports as per HPI Genitourinary Genitourinary: Reports system reviewed and no additional complaints, except as documented and Reports as per HPI Musculoskeletal Musculoskeletal: Reports other (Left ankle pain) Neurologic Neurologic: Reports system reviewed and no additional complaints, except as documented and Reports as per HPI Past Medical History Past Medical History CARDIAC: Negative Congestive Heart Failure RESPIRATORY: Negative Chronic Obstructive Pulmonary Disease (COPD) GENITOURINARY: Negative Renal Disease ENDOCRINE: Negative Diabetes Mellitus Type 1 or Diabetes Mellitus Type 2 Social History SMOKING STATUS: Never smoker ED Exam General Limitations: Present no limitations General appearance: Present alert and in no apparent distress; Absent appears intoxicated, anxious, lethargic, obtunded, in distress, obese or cachectic Head Head exam: Present atraumatic, normocephalic and normal inspection Eye Eye exam: Present normal appearance, PERRL and EOMI ENT ENT exam: Present normal exam, normal oropharynx and mucous membranes moist Neck Neck exam: Present normal inspection, full ROM and trachea midline Chest Chest inspection: Present normal inspection and symmetric chest wall rise Respiratory Respiratory exam: Present normal lung sounds bilaterally; Absent respiratory distress, wheezes, stridor, accessory muscle use or prolonged expiratory phase Cardiovascular Cardiovascular exam: Present regular rate, normal rhythm and normal heart sounds Abdominal Exam Abdominal exam: Present soft and normal bowel sounds; Absent distention, tenderness, guarding, rebound or rigidity Extremities Exam Extremities exam: Present normal inspection and full ROM Expanded Lower Extremity Exam Ankle exam: Present tenderness (Moderate tenderness left lateral ankle), swelling (Mild swelling) and other (Noted mild to moderate tenderness on the lateral aspect of the left ankle with mild swelling no crepitation no deformity no redness ROM limited due to pain pulses were full and equal capillary refill less than 2 seconds no calf tenderness negative Hummel signs negative Homans signs); Absent abrasion, laceration, ecchymosis, deformity, crepitus, dislocation, erythema, tenderness over talofibular lig or anterior draw sign Foot/toe exam: Present normal inspection and full ROM; Absent tenderness or swelling Neurovascular/Tendon exam: Present normal capillary refill; Absent pulse deficit, motor deficit, sensory deficit, tendon deficit or extremity cold to touch Back Exam Back exam: Present normal inspection and full ROM Neurological Exam Neurological exam: Present alert, oriented X3, CN II-XII intact, normal gait and reflexes normal; Absent motor sensory deficit Psychiatric Psychiatric exam: Present normal affect and normal mood Skin Skin exam: Present warm, dry, intact and normal color Course Quality Measures none Orders Category Date Time Status XR ankle LT 2V Stat Exams 10/30/24 01:49 Taken Vital Signs Vital signs: Vital Signs Temperature 98.3 F 10/30/24 01:42 Pulse Rate 102 H 10/30/24 01:42 Respiratory Rate 18 10/30/24 01:42 Blood Pressure 122/84 10/30/24 01:42 Pulse Oximetry (%) 98 10/30/24 01:42 Oxygen Delivery Method Room Air 10/30/24 01:42 Oxygen saturation 98% in room air normal Extremity Injury, Lower MDM Narrative MDM Narrative:: This is a case of 24-year-old female who came in in the emergency room due to left ankle injury history of present illness started 2 hours prior to arrival in the emergency room when the patient accidentally twisted her left ankle sustaining pain and swelling due to worsening of the symptoms this patient decided to sought consult here in the emergency room physical examination patient is awake alert oriented not in distress nontoxic looking ankle exam showed Noted mild to moderate tenderness on the lateral aspect of the left ankle with mild swelling no crepitation no deformity no redness ROM limited due to pain pulses were full and equal capillary refill less than 2 seconds no calf tenderness negative Hummel signs negative Homans signs x-ray showed no fracture no dislocation Milton bandage was placed on the left ankle patient tolerated well neurovascular intact RICE treatment will continue by the patient at home patient was prescribed with Tylenol patient is breast-feeding Patient was discharged with comfortable condition walking with stable gait. Patient verbalized no further complains explained diagnosis and answered patient question. Patient is comfortable with the proposed management plan including the need to follow up with his/her primary care physician and any specialist if applicable Discussed patient for any urgent condition or worsening sx, He/She needed to go to emergency room immediately or call 911. Patient acknowledge the responsibility to follow up as instructed and to monitor her/his symptoms. For any persistence of the symptoms for more than 3-5 days return precaution advised. Discussed the result of the test and was given printed discharge instruction Patient data External records reviewed:: [facility] previous records Clinical information provided by:: patient Social determinants that could affect healthcare access:: none Patient has the following chronic illnesses:: None How is presenting disease/condition affected by chronic disease/condition?: no chronic disease Evaluation data The following diagnostics were reviewed and interpreted by me:: radiology exam(s) Lab and/or radiology exams considered but not ordered:: Reviewed Interpretation Summary: Reviewed Medications / Prescriptions Medications or Prescriptions considered but not ordered:: Given Medication administrations:: Given Consultations Consultation(s) initiated? (list below): No Diagnosis Extremity Injury, Lower Differential Diagnosis: other (Fracture dislocation sprain) Most likely diagnosis given after review of the tests above:: Ankle sprain Admission Indicated Admission indicated?: not indicated Explain why admission is indicated or not indicated:: Not indicated Admission Request Was there a request for admission?: No Admission Attestation Admission request attestation: Not indicated Disposition Plan Disposition Plan: Discharge Discharge Attestation Discharge Attestation: The patient and all family members were given an opportunity to ask questions and understood the discharge instructions. Discharge instructions specifically effects, indications for sooner follow up or return to the emergency department, and the expected course of current diagnosis. Patient condition: Stable Discharge Plan Plan Patient Disposition: HOME (Self Care) Patient condition on transfer: Stable Prescriptions/Referrals Prescriptions/Med Rec: New acetaminophen [Tylenol] 325 mg tablet 650 mg PO Q6H PRN (Reason: pain) Qty: 30 0RF No Action Vitamin Tablet 1 tab PO DAILY acetaminophen 500 mg tablet 1,000 mg PO Q6H MDD 4000mg PRN (Reason: fever) Qty: 30 0RF Referrals: Javed Villar MD [Primary Care Provider] - In 1 week Problem List Clinical Impression: Left ankle sprain Patient/Caregiver Discharge Instructions Education Materials: Treating Ankle Sprains, ED MILTON Wrap, ED RICE Additional Instructions: Follow-up with your primary care physician in 2 days for reevaluation worsening symptoms or any emergent concern call 911 or go to the nearest emergency room for any persistent symptoms more than 3 to 5 days return to your primary care physician to be referred to Ortho for possible MRI to rule out ligament injury ice pack every 2 hours for 20 minutes for 24 hours then alternate with warm compress elevate to decrease swelling keep this Milton bandage in place until cleared by your primary care physician only Tylenol for pain because you are breast-feeding Print Language: Macedonian Stand Alone Forms: Elizabeth Award Info., Patient Portal Info Letter KORI/MADDY Supervising Physician KORI/MADDY Supervising Physician: dr desai
== END 2024-10-30 03:38 | disposition home or self-care (01) ==
PROVIDERS: Emergency Provider Emergency Medicine; PCP Family Medicine
DX: S93.402A Sprain of unspecified ligament of left ankle, initial encounter (principal); X50.1XXA Overexertion from prolonged static or awkward postures, initial encounter
CPT/HCPCS: 73600; 99283

== ENCOUNTER 2024-12-15 14:00 | Outpatient (RCR) | payer MEDICAID, SELFPAY ==
--- NOTE | 2024-12-10 16:00 | PTNOTE_ITS ---
PT OP Initial Eval Patient Information Outpatient Physical Therapy Treatment Date: 12/10/24 Medical Diagnosis: M54.50 Treatment Dx #1: Abnormal Posture Treatment Dx #2: Back Pain Start of Care: 12/10/24 Date of Onset: 10 years ago Smoking Status Smoking Status: Never smoker Initial Assessment Subjective: Pt is a 24 y/o female reports of chronic spinal pain worsening since her last childbearing. Pt had her 3rd child ~ 3 months ago. No imaging has been done thus far. Pt has limitation with sleeping, lifting, chores, standing, walking, sitting, and performing recreational activities. Lately Pt has experience right hip pain with numbness down the leg. Objective: T/S and L/S AROM: all motions are WFL except left sidebending and left rotation BUE AROM: all motions are WNL Scapula MMTs: grossly 3+/5 BUE MMTs: grossly 4/5 Hip PROM: all motions are WFL Hip MMTs: grossly 3+/5 Posture: right trunk sidebend, right pelvis elevation, scapula wing L>R Muscle Length: Hs tightness R>L Assessment: Pt demonstrate back pain consistent with abnormal posture leading to difficulty with ADLs. Pt will benefit from physical therapy to increase mobility, flexibility, and work on core strengthening. Short Term and Senior Care Goals 1) Increase spinal mobility WFL in 6 wks to be able to perform chores 2) Decrease back pain to 2/10 in 6 wks to be able to sit and stand more than 30 mins 3) Increase core strength WFL in 6 wks to be able to perform recreational activities 4) Increase hip MMTs grossly to 4-/5 in 6 wks to be able to walk more than 30 mins 5) Indep with HEP Treatment Plan 1) Manual Therapy 2) Therapeutic Activities 3) Therapeutic Exercises 4) Modalities (ice, heat) Frequency and Duration: 2 x wk for 6 wks Certification Dates: 12/10/24 to 03/12/25 Procedure Charges OP PT Eval Mod Complex 30 minutes: Yes
--- NOTE | 2024-12-15 15:07 | PTNOTE_ITS ---
PT Outpatient Daily Note OP Daily Note Outpatient Physical Therapy Treatment Date: 12/15/24 Subjective: Pt's back is stiff. Pt still has pain with activities Objective: Please see flow chart for list of ther ex performed Assessment: difficulty keeping back flat with wall yunior due to decrease L/S mobility. Pre- heat helped patient tolerate supine exercises Plan: Continue with PT Length of Time (minutes) of Treatment: 30 Minutes Procedure Charges Therapeutic Exercise 30 minutes: Yes
== END 2024-12-26 23:59 | disposition home or self-care (01) ==
LOC: CPTX 14:00
PROVIDERS: PCP Family Medicine; Referring Provider Family Medicine; Visit Provider Family Medicine
DX: M54.50 Low back pain, unspecified (principal); R29.3 Abnormal posture; M25.551 Pain in right hip; R20.0 Anesthesia of skin; R26.2 Difficulty in walking, not elsewhere classified
CPT/HCPCS: 97110; 97162

== ENCOUNTER 2024-12-29 08:01 | Emergency (ER) | payer MEDICAID, SELFPAY ==
--- NOTE | 2024-12-29 08:10 | XR_ITS ---
Examination: PA lateral chest 2 views TECHNIQUE: Upright PA lateral chest 2 views Date and time: December 29, 2024 0825 hours INDICATIONS: Coughing difficulty breathing chest pain today. FINDINGS: Normal heart size. Lungs are clear. The osseous structures are intact IMPRESSION: No active disease
[2024-12-29 08:18] VITALS: BP 118/58; PULSE 106; RESP 16; TEMP 37.3; O2SAT 98; BMI 28.0
--- NOTE | 2024-12-29 09:13 | EDNOTE_ITS ---
<Statement entered by Dilcia Bermudez MD - 01/08/25 11:11> As co-signing physician, I was present and available for consult prn. I concur with the plan and care as documented by the midlevel provider. ED SOB =RME/HPI General Chief Complaint: Shortness of Breath/Dyspnea Stated Complaint: CAN'T TAKE FULL BREATH Time Seen by Provider: 12/29/24 08:02 Arrival date/time: 12/29/24 08:01 24-year-old female with multiple sick contacts presents to the emergency department if complains of cough, congestion and generalized bodyaches patient's daughter tested positive for COVID-19 today Limitations: no limitations Related Data Home Medications ?Medication ?Instructions ?Recorded ?Confirmed prenat.vits,marissa,[id number] 1 tab PO DAILY 12/02/20 05/19/24 Previous Rx's ?Medication ?Instructions ?Recorded acetaminophen 500 mg tablet 1,000 mg (2 x 500 mg) PO Q 6H PRN 05/20/24 fever #30 tabs acetaminophen 325 mg tablet 650 mg (2 x 325 mg) PO Q6H PRN 10/30/24 (Tylenol) pain #30 tabs albuterol sulfate 90 mcg/actuation 2 puff inhalation Q 6H PRN 12/29/24 aerosol inhaler (Ventolin HFA) shortness of breath or wheezing #8.5 grams prednisone 20 mg tablet 20 mg PO BID 3 days #6 tabs 12/29/24 Allergies Allergy/AdvReac Type Severity Reaction Status Date / Time sulfamethoxazole Allergy Severe ABD PAIN, Verified 12/29/24 08:04 BLOOD IN STOOL trimethoprim Allergy Severe ABD PAIN, Verified 12/29/24 08:04 BLOOD IN STOOL Review of Systems Review of Systems Systems Reviewed: All systems reviewed, normal except as documented Constitutional Constitutional: Reports system reviewed and no additional complaints, except as documented, Denies fever(s) and Denies headache(s) Eyes Eyes: Reports system reviewed and no additional complaints, except as documented and Denies blurry vision ENT Ears, Nose, Mouth, and Throat: Reports system reviewed and no additional complaints, except as documented, Denies headache(s), Reports nasal congestion and Reports nasal discharge Cardiovascular Cardiovascular: Reports system reviewed and no additional complaints, except as documented, Denies chest pain and Denies dyspnea Respiratory Respiratory: Reports system reviewed and no additional complaints, except as documented, Reports chest congestion, Reports cough and Denies dyspnea Gastrointestinal Gastrointestinal: Reports system reviewed and no additional complaints, except as documented and Denies abdominal pain Integumentary/Breasts Skin/Breast: Reports system reviewed and no additional complaints, except as documented and Denies rash Neurologic Neurologic: Reports system reviewed and no additional complaints, except as documented, Reports as per HPI and Denies headache(s) Past Medical History Past Medical History CARDIAC: Negative Congestive Heart Failure RESPIRATORY: Negative Chronic Obstructive Pulmonary Disease (COPD) GENITOURINARY: Negative Renal Disease ENDOCRINE: Negative Diabetes Mellitus Type 1 or Diabetes Mellitus Type 2 Social History SMOKING STATUS: Never smoker ED Exam General Limitations: Present no limitations General appearance: Present alert and in no apparent distress Head Head exam: Present atraumatic Eye Eye exam: Present normal appearance, PERRL and EOMI ENT ENT exam: Present normal exam, normal oropharynx and mucous membranes moist Neck Neck exam: Present normal inspection, full ROM and trachea midline Chest Chest inspection: Present normal inspection and symmetric chest wall rise Respiratory Respiratory exam: Present normal lung sounds bilaterally Cardiovascular Cardiovascular exam: Present regular rate, normal rhythm and normal heart sounds Abdominal Exam Abdominal exam: Present soft and normal bowel sounds Extremities Exam Extremities exam: Present normal inspection and full ROM Back Exam Back exam: Present normal inspection and full ROM Neurological Exam Neurological exam: Present alert, oriented X3 and CN II-XII intact Psychiatric Psychiatric exam: Present normal affect and normal mood Skin Skin exam: Present warm, dry, intact and normal color Course Quality Measures none Orders Category Date Time Status Bedside COVID-19 Antigen Test NOW Care 12/29/24 08:10 Completed Bedside Influenza A&B Antigen Test NOW Care 12/29/24 08:10 Completed XR chest 2V Stat Exams 12/29/24 08:10 Completed Vital Signs Vital signs: Vital Signs Temperature 99.2 F 12/29/24 08:18 Pulse Rate 106 H 12/29/24 08:18 Respiratory Rate 16 12/29/24 08:18 Blood Pressure 118/58 L 12/29/24 08:18 Pulse Oximetry (%) 98 12/29/24 08:18 Oxygen Delivery Method Room Air 12/29/24 08:18 O2 saturation 98% room air within normal limits Shortness of Breath / Dyspnea MDM Narrative MDM Narrative:: 24-year-old female with multiple sick contacts presents to the emergency department if complains of cough, congestion and generalized bodyaches patient's daughter tested positive for COVID-19 today On exam patient well-appearing patient does not appear toxic no acute distress patient is no tachypnea or dyspnea no gross work of breathing patient hemodynamically stable Chest x-ray flu and COVID obtained Chest x-ray unremarkable Flu and COVID both negative Patient discharged home in no distress to follow-up with primary care doctor in the next 24 to 48 hours and for any worsening symptoms to return to the ER immediately Patient data External records reviewed:: [facility] previous records Clinical information provided by:: patient Social determinants that could affect healthcare access:: none Patient has the following chronic illnesses:: None How is presenting disease/condition affected by chronic disease/condition?: no chronic disease Evaluation data The following diagnostics were reviewed and interpreted by me:: lab results and radiology exam(s) Lab and/or radiology exams considered but not ordered:: Lab and radiology obtained Interpretation Summary: Reviewed by me Medications / Prescriptions Medications or Prescriptions considered but not ordered:: Given Medication administrations:: Given Consultations Consultation(s) initiated? (list below): No Diagnosis Shortness of Breath Differential Diagnosis: community acquired pneumonia, asthma with exacerbation and pulmonary embolism Most likely diagnosis given after review of the tests above:: COVID-19 exposure, URI Admission Indicated Admission indicated?: not indicated Admission Request Was there a request for admission?: No Disposition Plan Disposition Plan: Discharge Discharge Attestation Discharge Attestation: The patient and all family members were given an opportunity to ask questions and understood the discharge instructions. Discharge instructions specifically effects, indications for sooner follow up or return to the emergency department, and the expected course of current diagnosis. Patient condition: Stable Discharge Plan Plan Patient Disposition: HOME (Self Care) Discharge Disposition comment: Stable Prescriptions/Referrals Prescriptions/Med Rec: New prednisone 20 mg tablet 20 mg PO BID 3 Days Qty: 6 0RF albuterol sulfate [Ventolin HFA] 90 mcg/actuation HFA aerosol inhaler 2 puff inhalation Q6H PRN (Reason: shortness of breath or wheezing) Qty: 8.5 0RF No Action Vitamin Tablet 1 tab PO DAILY acetaminophen [Tylenol] 325 mg tablet 650 mg PO Q6H PRN (Reason: pain) Qty: 30 0RF acetaminophen 500 mg tablet 1,000 mg PO Q6H MDD 4000mg PRN (Reason: fever) Qty: 30 0RF Referrals: No Primary/Family,Physician [Primary Care Provider] - 12/30/24 Problem List Clinical Impression: Cough, Exposure to 2019-nCoV Patient/Caregiver Discharge Instructions Education Materials: ED Cough Chronic Uncertain Cause Adult Additional Instructions: Please follow up with your primary care doctor in the next 24-48hrs for any worsening symptoms return here immediately Print Language: Tajik Stand Alone Forms: Elizabeth Award Info., Patient Portal Info Letter PA/LITIGATION ASSOCIATE Supervising Physician PA/LITIGATION ASSOCIATE Supervising Physician: Dr. Bermudez
== END 2024-12-29 09:35 | disposition home or self-care (01) ==
PROVIDERS: Emergency Provider Emergency Medicine
DX: R05.9 Cough, unspecified (principal); Z20.822 Contact with and (suspected) exposure to COVID-19
CPT/HCPCS: 71046; 87400; 87811; 99283

== ENCOUNTER 2025-03-08 17:28 | Emergency (ER) | payer MEDICAID, SELFPAY ==
[2025-03-08 18:00] VITALS: BP 120/83; PULSE 93; RESP 17; TEMP 36.7; O2SAT 98; BMI 28.8
--- NOTE | 2025-03-08 18:20 | PD.EDBACK ---
ED Back Injury Pain RME/HPI General Chief Complaint: Back Pain/Injury Stated Complaint: MID TO LOWER BACK PAIN, NO H/O INJURY Time Seen by Provider: 03/08/25 18:20 Arrival date/time: 03/08/25 17:28 RME / HPI RME / HPI Narrative: 24-year-old female with a past medical history of chronic back pain, scoliosis, herniated disc who presents to the ER complaining of an acute exacerbation of her chronic pain. Patient states she is currently in physical therapy and has been for the past 2 months with minimal improvement of her pain. Pain is worse with twisting. Denies numbness, tingling, weakness, incontinence, fever, urinary symptoms, nausea, vomiting. Related Data Home Medications ?Medication ?Instructions ?Recorded ?Confirmed prenat.vits,marissa,[id number] 1 tab PO DAILY 12/02/20 05/19/24 Previous Rx's ?Medication ?Instructions ?Recorded acetaminophen 500 mg tablet 1,000 mg (2 x 500 mg) PO Q6H PRN 05/20/24 fever #30 tabs acetaminophen 325 mg tablet 650 mg (2 x 325 mg) PO Q6H PRN 10/30/24 (Tylenol) pain #30 tabs albuterol sulfate 90 mcg/actuation 2 puff inhalation Q6H PRN 12/29/24 aerosol inhaler (Ventolin HFA) shortness of breath or wheezing #8.5 grams Allergies Allergy/AdvReac Type Severity Reaction Status Date / Time sulfamethoxazole Allergy Severe ABD PAIN, Verified 03/08/25 17:31 BLOOD IN STOOL trimethoprim Allergy Severe ABD PAIN, Verified 03/08/25 17:31 BLOOD IN STOOL ED Exam Narrative Physical exam: Constitutional: Patient alert and oriented. Well appearing. No acute distress. Not toxic appearing. Head: Normocephalic, atraumatic. Eyes: Conjunctiva clear bilaterally. Mouth/Throat: Mucous membranes moist. No stridor or muffled voice. Handling secretions without difficulty. Neck: Supple. Trachea midline. No JVD. No nuchal rigidity. No midline tenderness or step-offs. Normal range of motion. Respiratory: Normal effort. Lungs clear to auscultation bilaterally without rhonchi, wheezes, or crackles. Cardiovascular: RRR. Normal S1/S2. No murmurs or rubs. Radial pulses intact bilaterally. Abdomen: Soft. Non-distended. Non-tender throughout. No pulsatile mass. No guarding or rebound. Back: No midline tenderness or step-offs. No CVA tenderness bilaterally. Positive right parathoracic and right paralumbar tenderness. Upper Extremities: No gross deformities. No focal motor deficits bilaterally. Lower Extremities: Heel-toe gait intact without difficulty. Deep tendon reflexes 2+ symmetric for lower extremities bilaterally. No gross deformities. No edema or calf tenderness. No focal motor or sensory deficits bilaterally. Neuro: Speech normal. CN II?XII grossly intact. GCS 15. Skin: Warm, dry, normal color. Psych: Normal affect. Cooperative. Normal insight. Course Quality Measures none Orders Category Date Time Status XR chest 1V Stat Exams 03/08/25 18:23 Completed XR lumbar spine 2-3V Stat Exams 03/08/25 18:23 Completed XR thoracic spine 3V Stat Exams 03/08/25 18:23 Completed HCG Qualitative,Urine Stat Lab 03/08/25 19:23 Completed Vital Signs Vital signs: Vital Signs Temperature 98.1 F 03/08/25 18:00 Pulse Rate 93 03/08/25 18:00 Respiratory Rate 17 03/08/25 18:00 Blood Pressure 120/83 03/08/25 18:00 Pulse Oximetry (%) 98 03/08/25 18:00 Oxygen Delivery Method Room Air 03/08/25 18:00 Back Pain / Injury MDM Narrative MDM Narrative:: MDM: This patient presents with back pain that is likely musculoskeletal in origin. Based on history and examination, the differential diagnoses of cauda equina syndrome, infection, trauma, malignancy, abdominal aortic aneurysm, and kidney stones have been considered and rejected. No serious etiologies of back pain are discernible at this time. The patient's symptoms will be managed with symptomatic care. The patient is advised to return to the ED immediately should worsening pain, fever, new weakness, bowel or bladder symptoms, or other new symptoms develop. Patient data External records reviewed:: None Clinical information provided by:: patient Social determinants that could affect healthcare access:: none Patient has the following chronic illnesses:: As noted How is presenting disease/condition affected by chronic disease/condition?: caused by Evaluation data The following diagnostics were reviewed and interpreted by me:: radiology exam(s) Lab and/or radiology exams considered but not ordered:: Additional Labs and radiology considered, but not ordered as they were not clinically indicated at this time. Interpretation Summary: X-ray notable for L4 and 5 disc space narrowing however no acute fracture or subluxation and no acute cardiopulmonary abnormality Medications / Prescriptions Medications or Prescriptions considered but not ordered:: I considered prescription management (both outpatient prescriptions AND drug treatment in the ER) and decided that this was necessary and was prescribed as charted. Medication administrations:: Patient declined a Toradol shot or a lidocaine patch as she states she is breast-feeding and prefers Tylenol at this time however she is okay with potentially picking up lidocaine patches [id number] Consultations Consultation(s) initiated? (list below): No Diagnosis Differential diagnosis back pain/injury: strain of lumbar region and thoracic back pain Most likely diagnosis given after review of the tests above:: Thoracic and lumbar strain Admission Indicated Admission indicated?: not indicated Admission Request Was there a request for admission?: No Disposition Plan Disposition Plan: Discharge Discharge Attestation Discharge Attestation: The patient and all family members were given an opportunity to ask questions and understood the discharge instructions. Discharge instructions specifically effects, indications for sooner follow up or return to the emergency department, and the expected course of current diagnosis. Patient condition: Stable Discharge Plan Plan Patient Disposition: HOME (Self Care) Patient condition on transfer: Stable Prescriptions/Referrals Prescriptions/Med Rec: No Action Vitamin Tablet 1 tab PO DAILY acetaminophen [Tylenol] 325 mg tablet 650 mg PO Q6H PRN (Reason: pain) Qty: 30 0RF acetaminophen 500 mg tablet 1,000 mg PO Q6H MDD 4000mg PRN (Reason: fever) Qty: 30 0RF albuterol sulfate [Ventolin HFA] 90 mcg/actuation HFA aerosol inhaler 2 puff inhalation Q6H PRN (Reason: shortness of breath or wheezing) Qty: 8.5 0RF Referrals: No Primary/Family,Physician [Primary Care Provider] - In 1 week Problem List Clinical Impression: Thoracic back pain, Strain of lumbar region Patient/Caregiver Discharge Instructions Education Materials: Back Basics: A Healthy Spine, ED Back Sprain/Strain, ED Back and Neck Pain, General Additional Instructions: Follow up with your primary medical doctor within 24 hours. Return to the Emergency Room immediately for any new, worsening, continuing symptoms or any concerns at all. Return to the Emergency Room within 24 hours if you are unable to follow up with your primary medical doctor within 24 hours. Print Language: Urdu Stand Alone Forms: Elizabeth Award Info., Patient Portal Info Letter PA/BILINGUAL ELEMENTARY SCHOOL TEACHER Supervising Physician PA/BILINGUAL ELEMENTARY SCHOOL TEACHER Supervising Physician: Dr. zO GERMAN Attestation MD Attestation Dr. Clinton
--- NOTE | 2025-03-08 18:23 | XR_ITS ---
EXAMINATION: Lumbar spine 2 views TECHNIQUE: AP lateral lumbar spine 2 views Date and time: March 08, 2025, 1949 hours INDICATION: Back pain 2 years. FINDINGS: Thoracolumbar dextroscoliosis 10 degrees No lumbar fracture Mild disc narrowing L4-L5 No spondylolisthesis IMPRESSION: Mild disc narrowing L4-L5
--- NOTE | 2025-03-08 18:23 | XR_ITS ---
EXAMINATION: Thoracic spine 3 views TECHNIQUE: AP lateral: Lateral upper dorsal spine 3 views Date and time: March 08, 2025, 1948 hours INDICATIONS: Back pain 2 years. FINDINGS: Thoracic levoscoliosis 8 degrees Intact pedicles No thoracic fracture No significant thoracic disc narrowing IMPRESSION: Thoracic levoscoliosis 8 degrees No thoracic fracture or significant arthritic change
--- NOTE | 2025-03-08 18:23 | XR_ITS ---
EXAMINATION: PA chest single view TECHNIQUE: Upright PA chest single view Date and time: March 08, 2025 1947 hours INDICATIONS: Chest pain back pain 2 years FINDINGS: Normal heart size The lungs are clear. Osseous structures are intact IMPRESSION: No active disease
[2025-03-08 20:10] LABS: HCG Qualitative,Urine Negative
[2025-03-08 21:10] VITALS: BP 114/79; PULSE 85; RESP 19; TEMP 37.1; O2SAT 99
== END 2025-03-08 22:25 | disposition home or self-care (01) ==
PROVIDERS: Physician Assistant; Emergency Provider Emergency Medicine
DX: G89.29 Other chronic pain (principal); M54.6 Pain in thoracic spine; S39.012A Strain of muscle, fascia and tendon of lower back, initial encounter; X58.XXXA Exposure to other specified factors, initial encounter
CPT/HCPCS: 71045; 72072; 72100; 81025; 99283

== ENCOUNTER 2025-04-11 01:59 | Emergency (ER) | payer MEDICAID, SELFPAY ==
[2025-04-11 02:01] VITALS: BMI 26.6
[2025-04-11 02:04] VITALS: BP 126/89; PULSE 95; RESP 18; TEMP 36.7; O2SAT 98
[2025-04-11 02:27] LABS: Collection Type, Urine Voided
[2025-04-11 02:32] LABS: Bilirubin,Urine Negative (Negative); Blood,Urine Negative (Negative); Clarity,Urine Clear (Clear/Hazy); Color,Urine Lt-Yellow (Lt Yel-Yel); Glucose, Urine Negative (Negative); Ketones,Urine Negative (Negative); Leukocyte Esterase,Urine Negative (Negative); Nitrite,Urine Negative (Negative); PH,Urine 6.0 (5.0-7.0); Protein,Urine Negative (Neg - Trace); RBC,Urine 4 /hpf (0-3); Specific Gravity,Urine 1.022 (1.001-1.035); Squamous Epithelial Cell,Urine 2 /hpf (0-5); Urobilinogen,Urine Negative mg/dL (0.0-1.0); WBC,Urine 1 /hpf (0-5)
[2025-04-11 02:33] LABS: HCG Qualitative,Urine Negative
[2025-04-11] MEDS: KETOROLAC INJ 60 MG/2 ML VIAL IM (02:45)
[2025-04-11] MEDS: HYDROcodone/APAP 5/325 TABLET 1 TAB PO (02:47)
--- NOTE | 2025-04-11 02:55 | EDNOTE_ITS ---
ED Back Injury Pain RME/HPI General Chief Complaint: Back Pain/Injury Stated Complaint: RIGHT LOWER BACK PAIN Time Seen by Provider: 04/11/25 02:07 Arrival date/time: 04/11/25 01:59 This is a case of 24 years old female with history of sciatica and chronic low back pain secondary to herniated disc came in in the emergency room today with lower back pain mostly on the right side radiating to the right lateral side of the thigh but no numbness no weakness no tingling sensation no incontinence to urine or stool denies any injury or trauma persistence of the symptoms this patient decided to sought consult here in the emergency room Limitations: no limitations Related Data Home Medications ?Medication ?Instructions ?Recorded ?Confirmed prenat.vits,marissa,[id number] 1 tab PO DAILY 12/02/20 05/19/24 Previous Rx's ?Medication ?Instructions ?Recorded acetaminophen 500 mg tablet 1,000 mg (2 x 500 mg) PO Q 6H PRN 05/20/24 fever #30 tabs acetaminophen 325 mg tablet 650 mg (2 x 325 mg) PO Q6H PRN 10/30/24 (Tylenol) pain #30 tabs albuterol sulfate 90 mcg/actuation 2 puff inhalation Q 6H PRN 12/29/24 aerosol inhaler (Ventolin HFA) shortness of breath or wheezing #8.5 grams baclofen 10 mg tablet 10 mg PO BID PRN muscle spas m #10 04/11/25 tabs hydrocodone 5 mg-acetaminophen 325 1 tab PO Q6H PRN pa in #16 tabs 04/11/25 mg tablet lidocaine 5 % topical patch 1 patch topical QDAY #15 e a 04/11/25 (Lidoderm) Allergies Allergy/AdvReac Type Severity Reaction Status Date / Time sulfamethoxazole Allergy Severe ABD PAIN, Verified 04/11/25 02:00 BLOOD IN STOOL trimethoprim Allergy Severe ABD PAIN, Verified 04/11/25 02:00 BLOOD IN STOOL Review of Systems Review of Systems Systems Reviewed: All systems reviewed, normal except as documented Constitutional Constitutional: Reports system reviewed and no additional complaints, except as documented and Reports as per HPI Cardiovascular Cardiovascular: Reports system reviewed and no additional complaints, except as documented and Reports as per HPI Respiratory Respiratory: Reports system reviewed and no additional complaints, except as documented and Reports as per HPI Gastrointestinal Gastrointestinal: Reports system reviewed and no additional complaints, except as documented and Reports as per HPI Musculoskeletal Musculoskeletal: Reports system reviewed and no additional complaints, except as documented and Reports as per HPI Neurologic Neurologic: Reports system reviewed and no additional complaints, except as documented and Reports as per HPI Past Medical History Past Medical History CARDIAC: Negative Congestive Heart Failure RESPIRATORY: Negative Chronic Obstructive Pulmonary Disease (COPD) GENITOURINARY: Negative Renal Disease ENDOCRINE: Negative Diabetes Mellitus Type 1 or Diabetes Mellitus Type 2 Social History SMOKING STATUS: Never smoker ED Exam General Limitations: Present no limitations General appearance: Present alert, in no apparent distress and other (Patient is awake alert oriented not in distress nontoxic looking well-hydrated well- nourished) Head Head exam: Present atraumatic, normocephalic and normal inspection Eye Eye exam: Present normal appearance, PERRL and EOMI ENT ENT exam: Present normal exam, normal oropharynx and mucous membranes moist Neck Neck exam: Present normal inspection, full ROM and trachea midline; Absent tenderness, meningismus, lymphadenopathy or thyromegaly Chest Chest inspection: Present normal inspection and symmetric chest wall rise; Absent tenderness Respiratory Respiratory exam: Present normal lung sounds bilaterally; Absent respiratory distress, wheezes, stridor, accessory muscle use or prolonged expiratory phase Cardiovascular Cardiovascular exam: Present regular rate, normal rhythm and normal heart sounds; Absent bradycardia, tachycardia, irregular rhythm, systolic murmur or diastolic murmur Abdominal Exam Abdominal exam: Present soft and normal bowel sounds; Absent distention, tenderness, guarding, rebound, rigidity, diminished bowel sounds, hyperactive bowel sounds, hypoactive bowel sounds or organomegaly Extremities Exam Extremities exam: Present normal inspection and full ROM Expanded Lower Extremity Exam Hip/Pelvis exam: Present normal inspection and full ROM; Absent tenderness or swelling Upper leg exam: Present normal inspection and full ROM; Absent tenderness or swelling Back Exam Back exam: Present normal inspection, full ROM, tenderness (Mild tenderness on the L1 L5 no crepitation no deformity no redness no swelling no paraspinal no paravertebral tenderness leg raise exam is normal no CVA tenderness 30) and musc le spasm; Absent CVA tenderness (R), CVA tenderness (L), paraspinal tenderness, vertebral tenderness, rashes, sciatic notch tenderness (R), sciatic notch tenderness (L), straight leg raise (R) or straight leg raise (L) Neurological Exam Neurological exam: Present alert, oriented X3, CN II-XII intact, normal gait and reflexes normal; Absent motor sensory deficit Psychiatric Psychiatric exam: Present normal affect and normal mood Skin Skin exam: Present warm, dry, intact, normal color and other (Excellent skin turgor) Course Quality Measures none Orders Category Date Time Status HCG Qualitative,Urine Stat Lab 04/11/25 02:15 Completed Urinalysis Stat Lab 04/11/25 02:15 Completed HYDROcodone*/APAP 5/325 [[place] 5/325] Med 04/11/25 02:13 Discontinued 1 tab PO X1 ONE Ketorolac Inj [Toradol Inj] Med 04/11/25 02:13 Discontinued 60 mg IM X1 ONE dexAMETHasone INJ [Decadron Inj] Med 04/11/25 02:13 Discontinued 10 mg IM X1 ONE Vital Signs Vital signs: Vital Signs Temperature 98.0 F 04/11/25 02:04 Pulse Rate 95 04/11/25 02:04 Respiratory Rate 18 04/11/25 02:04 Blood Pressure 126/89 H 04/11/25 02:04 Pulse Oximetry (%) 98 04/11/25 02:04 Oxygen Delivery Method Room Air 04/11/25 02:04 Oxygen saturation is 98% on room air Back Pain / Injury MDM Narrative MDM Narrative:: This is a case of 24 years old female with history of sciatica and chronic low back pain secondary to herniated disc came in in the emergency room today with lower back pain mostly on the right side radiating to the right lateral side of the thigh but no numbness no weakness no tingling sensation no incontinence to urine or stool denies any injury or trauma persistence of the symptoms this patient decided to sought consult here in the emergency room physical examination patient is awake alert oriented not in distress nontoxic looking well-hydrated well-nourished noted mild to moderate tenderness on L1 L5 no crepitation no deformity no paraspinal no paravertebral tenderness leg raise exam is normal mild muscle spasm steady gait no CVA tenderness at the time of exam no signs and symptoms of cauda equina since the patient have chronic low back pain and there is no indication to perform any imaging such as CT scan patient verbalized MRI and I discussed with the patient that we are not able to perform MRI today she can come back tomorrow morning or go to primary care physician to have an order by his primary care physician or orthopedic surgeon for MRI for any worsening symptoms or any emergent concern return precaution in the ER is advised to follow-up with PCP in 2 days for reevaluation and to be referred to neurosurgeon and pain management doctor for chronic low back pain patient was given Toradol [place] and dexamethasone which improved and resolved the pain patient is stable to discharge and agreed with the treatment plan and discharge Patient was discharged with comfortable condition walking with stable gait. Patient verbalized no further complains explained diagnosis and answered patient question. Patient is comfortable with the proposed management plan including the need to follow up with his/her primary care physician and any specialist if applicable Discussed patient for any urgent condition or worsening sx, He/She needed to go to emergency room immediately or call 911. Patient acknowledge the responsibility to follow up as instructed and to monitor her/his symptoms. For any persistence of the symptoms for more than 3-5 days return precaution advised. Discussed the result of the test and was given printed discharge instruction Patient data External records reviewed:: [facility] previous records Clinical information provided by:: patient Social determinants that could affect healthcare access:: none Patient has the following chronic illnesses:: None How is presenting disease/condition affected by chronic disease/condition?: no chronic disease Evaluation data The following diagnostics were reviewed and interpreted by me:: other (specify) (None) Lab and/or radiology exams considered but not ordered:: None Interpretation Summary: None Medications / Prescriptions Medications or Prescriptions considered but not ordered:: Given Medication administrations:: Medication Administration History Discontinued Medications Hydrocodone Bitart/Acetaminophen (Hydrocodone/Apap 5/325 Tablet) 1 tab PO X1 ONE Stop: 04/11/25 02:14 Last Admin: 04/11/25 02:47 Dose: 1 tab Documented By: CVL Dexamethasone Sodium Phosphate (Dexamethasone Sod Phos Inj 10 Mg/Ml Vial) 10 mg IM X1 ONE Stop: 04/11/25 02:14 Last Admin: 04/11/25 02:47 Dose: 10 mg Documented By: CVL Ketorolac Tromethamine (Ketorolac Inj 60 Mg/2 Ml Vial) 60 mg IM X1 ONE Stop: 04/11/25 02:14 Last Admin: 04/11/25 02:45 Dose: 60 mg Documented By: CVL Given Consultations Consultation(s) initiated? (list below): No Diagnosis Differential diagnosis back pain/injury: lumbar radiculopathy, sciatica and thoracic back pain Most likely diagnosis given after review of the tests above:: Chronic low back pain with muscle spasm with sciatica Admission Indicated Admission indicated?: not indicated Explain why admission is indicated or not indicated:: Not indicated Admission Request Was there a request for admission?: No Admission Attestation Admission request attestation: Not indicated Disposition Plan Disposition Plan: Discharge Discharge Attestation Discharge Attestation: The patient and all family members were given an opportunity to ask questions and understood the discharge instructions. Discharge instructions specifically effects, indications for sooner follow up or return to the emergency department, and the expected course of current diagnosis. Patient condition: Stable Discharge Plan Plan Patient Disposition: HOME (Self Care) Patient condition on transfer: Stable Prescriptions/Referrals Prescriptions/Med Rec: New hydrocodone-acetaminophen 5-325 mg tablet 1 tab PO Q6H MDD max 4 tabs per day PRN (Reason: pain) Qty: 16 0RF baclofen 10 mg tablet 10 mg PO BID PRN (Reason: muscle spasm) Qty: 10 0RF lidocaine [Lidoderm] 5 % adhesive patch,medicated 1 patch topical QDAY Qty: 15 0RF Rx Instructions: leave on most painful area for up to 12 hrs No Action Vitamin Tablet 1 tab PO DAILY acetaminophen [Tylenol] 325 mg tablet 650 mg PO Q6H PRN (Reason: pain) Qty: 30 0RF acetaminophen 500 mg tablet 1,000 mg PO Q6H MDD 4000mg PRN (Reason: fever) Qty: 30 0RF albuterol sulfate [Ventolin HFA] 90 mcg/actuation HFA aerosol inhaler 2 puff inhalation Q6H PRN (Reason: shortness of breath or wheezing) Qty: 8.5 0RF Problem List Clinical Impression: Chronic bilateral low back pain, Sciatica, Muscle spasm Patient/Caregiver Discharge Instructions Education Materials: ED Back Spasm, No Trauma, ED Chronic Pain, ED Muscle Spasm, ED Sciatica Additional Instructions: Follow-up with your primary care physician in 2 days for reevaluation and to be referred to neurosurgeon for further evaluation and treatment of your herniated disc and pain management doctor for pain control worsening symptoms or any emergent concerns such as numbness weakness tingling sensation incontinence to urine or stool call 911 or go to the nearest emergency room take your medication as directed ice pack and warm compress as needed for pain no lifting no pulling no pushing more than 5 pounds he is at advised Print Language: Italian Stand Alone Forms: [employer] Work/School Release, Patient Portal Info Letter PA/[employer]ER Supervising Physician PA/[employer]IC[employer] TEACHER Supervising Physician: Dr. Tirado
[2025-04-11 03:10] VITALS: RESP 16
== END 2025-04-11 03:11 | disposition home or self-care (01) ==
LOC: SERX 02:50
PROVIDERS: Nurse Practitioner Family; Emergency Provider Emergency Medicine
DX: M54.42 Lumbago with sciatica, left side (principal); M54.41 Lumbago with sciatica, right side; M62.838 Other muscle spasm; G89.29 Other chronic pain
CPT/HCPCS: 81001; 81025; 96372; 99283; J1100; J1885; A9270